=== PATIENT | female | born 1955 | race Caucasian/White ===

== ENCOUNTER 2024-08-29 14:25 | Inpatient (IN) | payer OTHER, MEDICARE ==
--- OUTSIDE RECORDS SUMMARY | 2024-08-29 14:28 | XMS REPORT | Continuity of Care Document ---
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 Phone Sylwia Gibson Attending Clinician Unavailable Payers Payer Name Policy Type Policy Number Effective Date Expirati on Date Source MEDICARE NOVITAS MB [id number] 2020 00:00:00 [facility] MEDICARE NOVITAS MB [id number] 2020 00:00:00 [facility] Problems Condition Name Condition Details Condition Category Status Onset Date Resolution Date Last Treatment Date Treating Clinician Comments Source [id number] BMI 29.0-29.9, adult Problem [facility] Vitamin D deficiency Vitamin D deficiency Problem [facility] Hypertensi on Hypertensi on Problem [facility] [id number] Mixed hyperlipid emia Problem [facility] [id number] Pulmonary emphysema, unspecifie d emphysema type Problem [facility] Chronic pain syndrome Chronic pain syndrome Problem [facility] Nicotine dependence Nicotine dependence Problem [facility] [id number] Encounter for immunizati on Problem [facility] Hyperlipid aemia Hyperlipem ia Problem [facility] [id number] Post-menop ausal Problem [facility] Allergies, Adverse Reactions, Alerts Allergy Name Allergy Type Status Severity Reaction(s) Onset Date Inactive Date Treating Clinician Comments Source 0 Drug allergy Active Whelps [facility] naproxen naproxen Active GI bleed Comm on [facility] Social History Social Habit Start Date Stop Date Quantity Comments Source History of Tobacco Use Current Smoker [facility] Sex Assigned At [facility] Smoking Status Start Date Stop Date Source Current Smoker 2024-07-13 00:00:00 [facility] Medications Ordered Medication Name Filled Medication Name Start Date Stop Date Current Medication? Ordering Clinician Indication Dosage Frequency Signature (SIG) Comments Components Source Rosuvastati n Calcium 40 MG Rosuvastati n Calcium 40 MG 07-17 00:00: 00 No 1{table t} QD Rosuvastat in Calcium 40 MG Ultram 50 MG Ultram 50 MG No Ultram 50 MG tiZANidine HCl 4 MG tiZANidine HCl 4 MG No 1{table t_as_ne eded} BID tiZANidine HCl 4 MG Vitamin D3 2000 UNIT Vitamin D3 2000 UNIT No 1{capsu le} QD Vitamin D3 2000 UNIT Lisinopril- hydroCHLORO thiazide 20-12.5 MG Lisinopril- hydroCHLORO thiazide 20-12.5 MG No QD Lisinopril -hydroCHLO ROthiazide 20-12.5 MG Albuterol Sulfate HFA 108 (90 Base) MCG/ACT Albuterol Sulfate HFA 108 (90 Base) MCG/ACT No QID Albuterol Sulfate HFA 108 (90 Base) MCG/ACT Anoro Ellipta 62.5-25 MCG/ACT Anoro Ellipta 62.5-25 MCG/ACT No 1{puff} QD Anoro Ellipta 62.5-25 MCG/ACT Immunizations Ordered Immunization Name Filled Immunization Name Date Status Comments Source FLUZONE HIGH DOSE OVER 65 FLUZONE HIGH DOSE OVER 65 2022-04-07 16:21:00 Completed [facility] FLUZONE HIGH DOSE OVER 65 FLUZONE HIGH DOSE OVER 65 2022-04-07 16:21:00 Completed [facility] FLUZONE HIGH DOSE OVER 65 FLUZONE HIGH DOSE OVER 65 2022-04-07 16:21:00 Completed [facility] FLUZONE HIGH DOSE OVER 65 FLUZONE HIGH DOSE OVER 65 2022-04-07 16:21:00 Completed [facility] FLUZONE HIGH DOSE OVER 65 FLUZONE HIGH DOSE OVER 65 2021-02-09 10:46:00 Completed [facility] FLUZONE HIGH DOSE OVER 65 FLUZONE HIGH DOSE OVER 65 2021-02-09 10:46:00 Completed [facility] FLUZONE HIGH DOSE OVER 65 FLUZONE HIGH DOSE OVER 65 2021-02-09 10:46:00 Completed [facility] FLUZONE HIGH DOSE OVER 65 FLUZONE HIGH DOSE OVER 65 2021-02-09 10:46:00 Completed [facility] FLUZONE HIGH DOSE OVER 65 FLUZONE HIGH DOSE OVER 65 2021-02-09 10:46:00 Completed [facility] Moderna COVID-19 Vaccine Moderna COVID-19 Vaccine 2021-02-06 11:38:00 Completed [facility] Moderna COVID-19 Vaccine (Low Dose Booster) Moderna COVID-19 Vaccine (Low Dose Booster) 2021-02-06 11:38:00 Completed [facility] Moderna COVID-19 Vaccine (Low Dose Booster) Moderna COVID-19 Vaccine (Low Dose Booster) 2021-02-06 11:38:00 Completed [facility] Moderna COVID-19 Vaccine (Low Dose Booster) Moderna COVID-19 Vaccine (Low Dose Booster) 2021-02-06 11:38:00 Completed [facility] Moderna COVID-19 Vaccine (Low Dose Booster) Moderna COVID-19 Vaccine (Low Dose Booster) 2021-02-06 11:38:00 Completed [facility] Moderna COVID-19 Vaccine Moderna COVID-19 Vaccine 2020-04-23 14:05:00 Completed [facility] Moderna COVID-19 Vaccine Moderna COVID-19 Vaccine 2020-04-23 14:05:00 Completed [facility] Moderna COVID-19 Vaccine Moderna COVID-19 Vaccine 2020-04-23 14:05:00 Completed [facility] Moderna COVID-19 Vaccine Moderna COVID-19 Vaccine 2020-04-23 14:05:00 Completed [facility] Moderna COVID-19 Vaccine Moderna COVID-19 Vaccine 2020-04-23 14:05:00 Completed [facility] Moderna COVID-19 Vaccine (Low Dose Booster) Moderna COVID-19 Vaccine (Low Dose Booster) Unknown Completed [facility] FLUZONE HIGH DOSE OVER 65 FLUZONE HIGH DOSE OVER 65 Unknown Completed [facility] Moderna COVID-19 Vaccine (Low Dose Booster) Moderna COVID-19 Vaccine (Low Dose Booster) Unknown Completed [facility] FLUZONE HIGH DOSE OVER 65 FLUZONE HIGH DOSE OVER 65 Unknown Completed [facility] Moderna COVID-19 Vaccine (Low Dose Booster) Moderna COVID-19 Vaccine (Low Dose Booster) Unknown Completed [facility] FLUZONE HIGH DOSE OVER 65 FLUZONE HIGH DOSE OVER 65 Unknown Completed [facility] Moderna COVID-19 Vaccine (Low Dose Booster) Moderna COVID-19 Vaccine (Low Dose Booster) Unknown Completed [facility] FLUZONE HIGH DOSE OVER 65 FLUZONE HIGH DOSE OVER 65 Unknown Completed [facility] Moderna COVID-19 Vaccine (Low Dose Booster) Moderna COVID-19 Vaccine (Low Dose Booster) Unknown Completed [facility] FLUZONE HIGH DOSE OVER 65 FLUZONE HIGH DOSE OVER 65 Unknown Completed [facility] MODERNA COVID-19 VACCINE (LOW DOSE BOOSTER) MODERNA COVID-19 VACCINE (LOW DOSE BOOSTER) Unknown Completed [facility] FLUZONE HIGH DOSE OVER 65 FLUZONE HIGH DOSE OVER 65 Unknown Completed [facility] Prevnar 20 (PCV20) Prevnar 20 (PCV20) Unknown Completed [facility] MODERNA COVID-19 VACCINE (LOW DOSE BOOSTER) MODERNA COVID-19 VACCINE (LOW DOSE BOOSTER) Unknown Completed [facility] FLUZONE HIGH DOSE OVER 65 FLUZONE HIGH DOSE OVER 65 Unknown Completed [facility] Prevnar 20 (PCV20) Prevnar 20 (PCV20) Unknown Completed [facility] MODERNA COVID-19 VACCINE (LOW DOSE BOOSTER) MODERNA COVID-19 VACCINE (LOW DOSE BOOSTER) Unknown Completed [facility] FLUZONE HIGH DOSE OVER 65 FLUZONE HIGH DOSE OVER 65 Unknown Completed [facility] Prevnar 20 (PCV20) Prevnar 20 (PCV20) Unknown Completed [facility] MODERNA COVID-19 VACCINE (LOW DOSE BOOSTER) MODERNA COVID-19 VACCINE (LOW DOSE BOOSTER) Unknown Completed [facility] FLUZONE HIGH DOSE OVER 65 FLUZONE HIGH DOSE OVER 65 Unknown Completed [facility] Vital Signs Vital Name Observation Time Observation Value Comments S ource height 2024-06-11 13:00:00 62.5 [in_i] Comm on [facility] weight 2024-06-11 13:00:00 149.2 [lb_av] Co mmon [facility] temperature 2024-06-11 13:00:00 97.9 [degF] Com mon [facility] bmi 2024-06-11 13:00:00 26.85 kg/m2 Comm on [facility] oximetry 2024-06-11 13:00:00 96 % Commo n [facility] respiratory rate 2024-06-11 13:00:00 16 /min [facility] blood pressure systolic 2024-06-11 13:00:00 132 mm[Hg] [facility] blood pressure diastolic 2024-06-11 13:00:00 84 mm[Hg] [facility] height 2024-06-11 13:00:00 62.5 [in_i] Comm on [facility] weight 2024-06-11 13:00:00 149.2 [lb_av] Co mmon [facility] temperature 2024-06-11 13:00:00 97.9 [degF] Com mon [facility] bmi 2024-06-11 13:00:00 26.85 kg/m2 Comm on [facility] oximetry 2024-06-11 13:00:00 96 % Commo n [facility] respiratory rate 2024-06-11 13:00:00 16 /min Common [facility] blood pressure systolic 2024-06-11 13:00:00 132 mm[Hg] Common [facility] blood pressure diastolic 2024-06-11 13:00:00 84 mm[Hg] Common [facility] height 2023-12-13 13:00:00 62.5 [in_i] Comm on [facility] weight 2023-12-13 13:00:00 155.2 [lb_av] Co mmon [facility] temperature 2023-12-13 13:00:00 98.2 [degF] Com mon [facility] bmi 2023-12-13 13:00:00 27.93 kg/m2 Comm on [facility] oximetry 2023-12-13 13:00:00 95 % Commo n [facility] respiratory rate 2023-12-13 13:00:00 16 /min Common [facility] blood pressure systolic 2023-12-13 13:00:00 139 mm[Hg] [facility] diastolic 2023-12-13 13:00:00 79 mm[Hg] Common [facility] height 2023-07-12 09:00:00 62.5 [in_i] Comm on [facility] weight 2023-07-12 09:00:00 159.2 [lb_av] Co mmon [facility] temperature 2023-07-12 09:00:00 98.6 [degF] Com mon [facility] bmi 2023-07-12 09:00:00 28.65 kg/m2 Comm on [facility] oximetry 2023-07-12 09:00:00 96 % Commo n [facility] respiratory rate 2023-07-12 09:00:00 16 /min Common [facility] blood pressure systolic 2023-07-12 09:00:00 142 mm[Hg] [facility] blood pressure diastolic 2023-07-12 09:00:00 88 mm[Hg] Common [facility] height 2023-07-12 09:00:00 62.5 [in_i] Comm on [facility] weight 2023-07-12 09:00:00 159.2 [lb_av] Co mmon [facility] temperature 2023-07-12 09:00:00 98.6 [degF] Com [facility] bmi 2023-07-12 09:00:00 28.65 kg/m2 Comm on [facility] oximetry 2023-07-12 09:00:00 96 % Commo n [facility] respiratory rate 2023-07-12 09:00:00 16 /min Common [facility] blood pressure systolic 2023-07-12 09:00:00 142 mm[Hg] [facility] blood pressure diastolic 2023-07-12 09:00:00 88 mm[Hg] Common [facility] height 2023-01-04 13:20:00 62.5 [in_i] Comm on [facility] weight 2023-01-04 13:20:00 162.2 [lb_av] Co mmon [facility] temperature 2023-01-04 13:20:00 97.5 [degF] Com [facility] bmi 2023-01-04 13:20:00 29.19 kg/m2 Comm on [facility] oximetry 2023-01-04 13:20:00 95 % Commo n [facility] respiratory rate 2023-01-04 13:20:00 16 /min [facility] blood pressure systolic 2023-01-04 13:20:00 139 mm[Hg] [facility] blood pressure diastolic 2023-01-04 13:20:00 70 mm[Hg] Common [facility] height 2022-07-27 13:40:00 62.5 [in_i] Comm on [facility] weight 2022-07-27 13:40:00 163.8 [lb_av] Co on [facility] temperature 2022-07-27 13:40:00 98.2 [degF] Com [facility] bmi 2022-07-27 13:40:00 29.48 kg/m2 Comm on [facility] oximetry 2022-07-27 13:40:00 97 % Commo n [facility] respiratory rate 2022-07-27 13:40:00 16 /min [facility] blood pressure systolic 2022-07-27 13:40:00 119 mm[Hg] [facility] blood pressure diastolic 2022-07-27 13:40:00 76 mm[Hg] [facility] height 2022-04-07 11:20:00 62.5 [in_i] Comm on [facility] weight 2022-04-07 11:20:00 165.4 [lb_av] Co [facility] temperature 2022-04-07 11:20:00 98.4 [degF] Com [facility] bmi 2022-04-07 11:20:00 29.77 kg/m2 Comm on [facility] oximetry 2022-04-07 11:20:00 96 % Commo n [facility] respiratory rate 2022-04-07 11:20:00 16 /min Common [facility] blood pressure systolic 2022-04-07 11:20:00 134 mm[Hg] [facility] blood pressure diastolic 2022-04-07 11:20:00 82 mm[Hg] [facility] height 2022-04-07 11:20:00 62.5 [in_i] Comm on [facility] weight 2022-04-07 11:20:00 165.4 [lb_av] Co mmon [facility] temperature 2022-04-07 11:20:00 98.4 [degF] Com [facility] bmi 2022-04-07 11:20:00 29.77 kg/m2 Comm on [facility] oximetry 2022-04-07 11:20:00 96 % Commo n [facility] respiratory rate 2022-04-07 11:20:00 16 /min Common [facility] blood pressure systolic 2022-04-07 11:20:00 134 mm[Hg] [facility] blood pressure diastolic 2022-04-07 11:20:00 82 mm[Hg] [facility] height 2022-04-07 11:00:00 62.5 [in_i] Comm on [facility] weight 2022-04-07 11:00:00 165.4 [lb_av] Co mmon [facility] temperature 2022-04-07 11:00:00 98.4 [degF] Com mon [facility] bmi 2022-04-07 11:00:00 29.77 kg/m2 Comm on [facility] oximetry 2022-04-07 11:00:00 96 % Commo n [facility] respiratory rate 2022-04-07 11:00:00 16 /min Common [facility] blood pressure systolic 2022-04-07 11:00:00 134 mm[Hg] [facility] blood pressure diastolic 2022-04-07 11:00:00 82 mm[Hg] [facility] height 2021-10-19 08:00:00 62.5 [in_i] Comm on [facility] weight 2021-10-19 08:00:00 161.4 [lb_av] Co mmon [facility] temperature 2021-10-19 08:00:00 98.4 [degF] Com mon [facility] bmi 2021-10-19 08:00:00 29.05 kg/m2 Comm on [facility] oximetry 2021-10-19 08:00:00 96 % Commo n [facility] respiratory rate 2021-10-19 08:00:00 16 /min [facility] blood pressure systolic 2021-10-19 08:00:00 139 mm[Hg] [facility] blood pressure diastolic 2021-10-19 08:00:00 70 mm[Hg] Common [facility] height 2021-04-14 10:00:00 65 [in_i] Commo n [facility] weight 2021-04-14 10:00:00 162 [lb_av] Comm on [facility] temperature 2021-04-14 10:00:00 98.1 [degF] Com mon [facility] bmi 2021-04-14 10:00:00 26.96 kg/m2 Comm on [facility] oximetry 2021-04-14 10:00:00 96 % Commo n [facility] respiratory rate 2021-04-14 10:00:00 16 /min [facility] blood pressure systolic 2021-04-14 10:00:00 130 mm[Hg] [facility] blood pressure diastolic 2021-04-14 10:00:00 68 mm[Hg] [facility] height 2020-10-07 08:20:00 65 [in_i] Commo n [facility] weight 2020-10-07 08:20:00 165 [lb_av] Comm on [facility] temperature 2020-10-07 08:20:00 97.3 [degF] Com mon [facility] bmi 2020-10-07 08:20:00 27.45 kg/m2 Comm on [facility] oximetry 2020-10-07 08:20:00 97 % Commo n [facility] respiratory rate 2020-10-07 08:20:00 16 /min [facility] blood pressure systolic 2020-10-07 08:20:00 130 mm[Hg] [facility] blood pressure diastolic 2020-10-07 08:20:00 72 mm[Hg] [facility] Encounters Start Date/Time End Date/Time Encounter Type Admission Type Attending [facility] Facility Care Department Encounter ID Source 2024-06-07 09:43:00 Outpatient ArthurSylwia STLC STLC [id number] [facility] 2023-07-11 09:49:00 Outpatient [place] tosc[place] STLMLC STLMLC [id number] [facility] 2023-06-16 08:39:00 Outpatient ArthurSylwia STLC STLMLC [id number] [facility] 2023-01-04 14:00:00 Outpatient [place] toscano STLMLC STLMLC [id number] [facility] 2022-01-21 09:53:00 Outpatient ArthurSylwia STLMLC STLMLC [id number] [facility] 2021-10-15 08:33:01 Outpatient Arthur Sylwia STLC STLMLC [id number] [facility] 2021-05-06 14:29:30 Outpatient Sylwia Gibson STRODNEY STLMLC [id number] [facility] 2021-05-06 14:07:47 Outpatient Sylwia Gibson STJELENALC STLMLC [id number] [facility] 2021-05-06 13:41:34 Outpatient Sylwia Gibson STLMLC STLMLC [id number] [facility] 2021-05-06 13:19:18 Outpatient Sylwia Gibson STLMLC STLMLC [id number] [facility] 2021-05-06 12:20:10 Outpatient Sylwia Gibson STLMLC STLMLC [id number] [facility] 2021-05-06 11:01:00 Outpatient Sylwia Gibson STLMLC STLMLC [id number] [facility] 2024-06-11 00:00:00 2024-06-11 00:00:00 OFFICE VISIT ESTAB PT LEVEL 4 STLMLC STLMLC [id number] [facility] 2024-01-27 00:00:00 2024-01-27 00:00:00 (TEL) STLMLC STLMLC [id number] [facility] 2023-12-13 00:00:00 2023-12-13 00:00:00 OFFICE VISIT ESTAB PT LEVEL 4 STLMLC STLMLC [id number] [facility] 2023-07-12 00:00:00 2023-07-12 00:00:00 OFFICE VISIT ESTAB PT LEVEL 4 STLMLC STLMLC [id number] [facility] 2023-07-12 00:00:00 2023-07-12 00:00:00 SUB ANNUAL [facility] VISIT STLMLC STLMLC [id number] [facility] 2023-04-20 00:00:00 2023-04-20 00:00:00 (TEL) STLMLC STLMLC [id number] [facility] 2023-01-04 00:00:00 2023-01-04 00:00:00 OFFICE VISIT ESTAB PT LEVEL 4 STLMLC STLMLC [id number] [facility] 2022-10-21 00:00:00 2022-10-21 00:00:00 (TEL) STLMLC STLMLC [id number] [facility] 2022-08-05 00:00:00 2022-08-05 00:00:00 (TEL) STLMLC STLMLC [id number] [facility] 2022-07-27 00:00:00 2022-07-27 00:00:00 OFFICE VISIT ESTAB PT LEVEL 4 STLMLC STLMLC [id number] [facility] 2022-04-26 00:00:00 2022-04-26 00:00:00 (TEL) STLMLC STLMLC [id number] [facility] 2022-04-07 00:00:00 2022-04-07 00:00:00 OFFICE VISIT ESTAB PT LEVEL 4 STLMLC STLMLC [id number] [facility] 2022-04-07 00:00:00 2022-04-07 00:00:00 SUB ANNUAL [facility] VISIT STLMLC STLMLC [id number] [facility] 2021-10-19 00:00:00 2021-10-19 00:00:00 OFFICE VISIT ESTAB PT LEVEL 4 STLMLC STLMLC [id number] [facility] 2021-04-27 00:00:00 2021-04-27 00:00:00 (TEL) STLMLC STLMLC [id number] [facility] 2021-04-14 00:00:00 2021-04-14 00:00:00 OFFICE VISIT ESTAB PT LEVEL 4 STLMLC STLMLC [id number] [facility] 2021-02-06 00:00:00 2021-02-06 00:00:00 (COVID Inj) COVID Injection STLMLC STLMLC [id number] [facility] 2021-02-04 00:00:00 2021-02-04 00:00:00 (TEL) STLMLC STLMLC [id number] [facility] 2020-12-03 00:00:00 2020-12-03 00:00:00 Outpatient STLMLC STLMLC [id number] [facility] 2020-11-25 00:00:00 2020-11-25 00:00:00 Outpatient STLMLC STLMLC [id number] [facility] 2020-10-07 00:00:00 2020-10-07 00:00:00 OFFICE VISIT ESTAB PT LEVEL 4 STLMLC STLMLC [id number] [facility] 2020-09-25 00:00:00 2020-09-25 00:00:00 Outpatient STLMLC STLMLC [id number] [facility] 2020-04-24 00:00:00 2020-04-24 00:00:00 Outpatient STLMLC STLMLC [id number] [facility] 2020-01-07 00:00:00 2020-01-07 00:00:00 Outpatient STLMLC STLMLC [id number] [facility] 2019-10-23 16:40:00 2019-10-23 16:40:00 [facility] [id number] [facility] 2019-04-25 17:46:00 2019-04-25 17:46:00 [facility] [place] [facility] [id number] [facility] 2019-04-25 16:40:00 2019-04-25 16:40:00 [facility] [id number] [facility] 2018-10-16 15:14:00 2018-10-16 15:14:00 [facility]patient [facility] [id number] [facility] 2018-10-11 14:40:00 2018-10-11 14:40:[address] [facility] [id number] [facility] 2018-09-22 11:21:00 2018-09-22 11:21:[address] [facility] [id number] [facility] 2018-03-28 13:00:00 2018-03-28 13:00:[address] [facility] [id number] [facility] 2017-08-23 14:45:00 2017-08-23 14:45:[address] [facility] [id number] [facility]
[2024-08-29] MEDS ORDERED: ASPIRIN 81 MG CHEWABLE TABLET ONE (14:59)
[2024-08-29] MEDS ORDERED: NITROGLYCERIN 0.4 MG/TAB SL ONE (14:59)
[2024-08-29 15:18] LABS: Absolute Basophils 0.1 K/uL (0-0.5); Absolute Eosinophils 0.1 K/uL (0-0.5); Absolute Lymphocytes (CBC) 1.3 K/uL (0.7-4.9); Absolute Monocytes 0.5 K/uL (0.1-1.3); Absolute Neutrophil 4.9 K/uL (1.8-8.0); Basophils % 0.9 % (0-1.3); Eosinophils % 2.1 % (0-4.4); Hemoglobin 14.9 g/dL (12.0-15.0); Lymphocytes % 18.6 % (15.3-44.8); MCHC 35.4 g/dL (32.0-36.0); MCV 84.8 fL (80-100); MPV 8.4 fL (7.6-11.3); Monocytes % 6.7 % (3.3-12.3); Neutrophils % 71.7 % (41.7-73.7); Platelets 240 thou/uL (152-406); RBC Red Blood Cell Count 4.95 M/uL (3.86-4.86); Red Cell Distribution Width 14.4 % (12.1-15.2)
[2024-08-29 15:40] LABS: ALT/SGPT 20 U/L (13-56); AST/SGOT 13 U/L (15-37); Albumin 3.5 g/dL (3.4-5.0); Albumin/Globulin Ratio 1.2 (1.1-1.8); Alkaline Phosphatase 69 U/L (45-117); Anion Gap 5.9 mEq/L (5.0-15.0); BUN Blood Urea Nitrogen 15 mg/dL (7-18); Bicarbonate 28 mEq/L (21-32); Bilirubin Total 0.2 mg/dL (0.2-1.0); Globulin 2.9 g/dL (2.3-3.5); Glomerular Filtration Rate 73 ml/min (=/>90); Glucose Level 201 mg/dL (74-106); Potassium 2.9 mEq/L (3.5-5.1); Protein, Total 6.4 g/dL (6.4-8.2); Sodium Level 132 mEq/L (136-145); Troponin High Sensitivity 22.1 pg/mL (<58.9)
[2024-08-29 15:41] LABS: Bilirubin Direct < 0.2 mg/dL (0-0.2)
--- NOTE | 2024-08-29 15:45 | RAD REPORT ---
EXAM: Chest Single View HISTORY: 69 years Female CHEST PAIN COMPARISON: 07/11/2008 FINDINGS: LUNGS/PLEURA: Diffuse prominence of the pulmonary interstitium. No focal consolidation. No definite e jennifer. CARDIAC/MEDIASTINUM: The cardiac silhouette is within normal limits. UPPER ABDOMEN: No significant abnormality. BONES: No acute abnormality. LINES/TUBES/OTHER: N/A IMPRESSION: Diffuse interstitial prominence could reflect an atypical infectious process. Edema less likely.
--- NOTE | 2024-08-29 17:08 | ER ---
Nurse's Notes [facility] Name: Alyssa Marquis Age: 69 yrs Sex: Female : 1955 Arrival Date: 08/29/2024 Time: 14:25 Bed 8 Private MD: Diagnosis: Chest pain, unspecified Presentation: 08/29 14:38 Chief complaint: Intermittent chest pain that radiates to neck and left arm x 1 week, hb became constant today. Coronavirus screen: At this time, the client does not indicate any symptoms associated with coronavirus-19. Ebola Screen: No symptoms or risks identified at this time. Initial Sepsis Screen: Does the patient meet any 2 criteria? No. Patient's initial sepsis screen is negative. Does the patient have a suspected source of infection? No. Patient's initial sepsis screen is negative. Risk Assessment: Do you want to hurt yourself or someone else? Patient reports no desire to harm self or others. Onset of symptoms was August 22, 2024. 14:38 Method Of Arrival: Ambulatory hb 14:38 Acuity: HERON 2 hb Historical: - Allergies: 14:39 PENICILLINS; hb 14:39 Naproxen; hb - Home Meds: 14:39 Lisinopril Oral [Active]; hb - PMHx: 14:39 Hypertension; High Cholesterol; hb - Immunization history:: Adult Immunizations up to date. - Infectious Disease History:: Denies. - Social history:: Smoking status: Patient reports the use of cigarette tobacco products, 1.5 PPD. - Family history:: not pertinent. Screenin:43 [facility] ED Fall Risk Assessment (Adult) History of falling in the last 3 months, ld1 including since admission No falls in past 3 months (0 pts) Confusion or Disorientation No (0 pts) Intoxicated or Sedated No (0 pts) Impaired Gait No (0 pts) Mobility Assist Device Used No (0 pt) Altered Elimination No (0 pt) Score/Fall Risk Level 0 - 2 = Low Risk Oriented to surroundings, Hourly rounding (assess needs \T\ fall precautionary measures) done. Abuse screen: Denies threats or abuse. Denies injuries from another. Nutritional screening: No deficits noted. Tuberculosis screening: No symptoms or risk factors identified. Assessment: 14:43 General: Appears in no apparent distress. comfortable, Behavior is calm, cooperative, ld1 appropriate for age. Pain: Complains of pain in anterior aspect of left upper chest and left breast Pain radiates to left arm and left submandibular area Pain currently is 8 out of 10 on a pain scale. Quality of pain is described as sharp, shooting, throbbing, Pain began 2-3 days ago. Is intermittent. Neuro: Level of Consciousness is awake, alert, obeys commands, Oriented to person, place, time, situation. Cardiovascular: Capillary refill < 3 seconds Patient's skin is warm and dry. Cardiovascular: Reports chest pain, Rhythm is sinus rhythm. Respiratory: Airway is patent Respiratory effort is even, labored. GI: Abdomen is round non-distended. : No signs and/or symptoms were reported regarding the genitourinary system. EENT: No signs and/or symptoms were reported regarding the EENT system. Derm: No signs and/or symptoms reported regarding the dermatologic system. Musculoskeletal: No signs and/or symptoms reported regarding the musculoskeletal system. 16:18 Reassessment: Patient appears in no apparent distress at this time. No changes from ld1 previously documented assessment. Vital Signs: 14:38 BP 181 / 87; Pulse 93; Resp 18; Temp 98.1(O); Pulse Ox 96% on R/A; Weight 74.84 kg; hb Height 5 ft. 5 in. ; Pain 7/10; 14:43 BP 181 / 87; Pulse 100; Resp 18; Pulse Ox 96% on R/A; Pain 8/10; ld1 14:38 Body Mass Index 27.46 (74.84 kg, 165.1 cm) hb 14:38 Pain Scale: Adult hb 14:43 Pain Scale: Adult ld1 ED Course: 14:27 Patient arrived in ED. mr 14:33 Pranay Wagner MD is Attending Physician. rt 14:39 Triage completed. hb 14:39 EKG done, by ED staff, reviewed by Pranay Wagner MD. hb 14:41 Arm band placed on. hb 14:43 Marlin Louise, JAD is Primary Nurse. ld1 14:43 Patient has correct armband on for positive identification. Placed in gown. Bed in low ld1 position. Call light in reach. Side rails up X2. compliance monitor on. Pulse ox on. NIBP on. Door closed. Noise minimized. Warm blanket given. 14:43 No provider procedures requiring assistance completed. Patient maintains SpO2 ld1 saturation greater than 95% on room air. 15:10 Inserted saline lock: 20 gauge in right antecubital area, using aseptic technique. ld1 Blood collected. Flushed with 10 mL NS. 15:30 XRAY Chest (1 view) In Process Unspecified. EDMS 17:07 Adams Hendrix MD is Hospitalizing Provider. rt 18:33 Patient admitted, IV remains in place. ld1 Administered Medications: 15:02 Drug: Aspirin PO Chewable Tablet 324 mg PO once; 81 mg tablets x 4 Route: PO; ld1 15:09 Follow up: Response: No adverse reaction ld1 15:02 Drug: Nitroglycerin Sublingual 0.4 mg Sublingual once; every five minute if needed x3 ld1 Route: Sublingual; 17:41 Drug: Potassium PO Effervescent Tablet 50 mEq PO once; dissolve in 4 ounces of water or ld1 juice Route: PO; Medication: 14:43 VIS not applicable for this client. ld1 Outcome: 17:07 Decision to Hospitalize by Provider. rt 18:33 Admitted to Med/surg ld1 18:33 Condition: stable 18:34 Patient left the ED. ld1 Signatures: Dispatcher [employer] EDWI Myriam Fallon, Reg Reg mr Tracey Andino, JAD STREET Marlin Louise RN RN ld1 Pranay Wagner MD MD rt
--- NOTE | 2024-08-29 17:08 | EDPHYS ---
Physician Documentation [facility] Name: Alyssa Marquis Age: 69 yrs Sex: Female : 1955 Arrival Date: 08/29/2024 Time: 14:25 Bed 8 Private MD: ED Physician Pranay Wagner HPI: 08/29 16:12 This 69 yrs old Female presents to ER via Ambulatory with complaints of Chest Pain, rt Back Pain. 16:12 Patient presents to the ED with 1 week of intermittent chest pain. Patient states that rt the pain has been constant since about noon, is worse with exertion. States that the pain radiates to the neck, left arm. Had mild associated nausea, denies other acute complaints, symptoms are moderate in severity, no other aggravating or alleviating factors.. Historical: - Allergies: 14:39 PENICILLINS; hb 14:39 Naproxen; hb - Home Meds: 14:39 Lisinopril Oral [Active]; hb - PMHx: 14:39 Hypertension; High Cholesterol; hb - Immunization history:: Adult Immunizations up to date. - Infectious Disease History:: Denies. - Social history:: Smoking status: Patient reports the use of cigarette tobacco products, 1.5 PPD. - Family history:: not pertinent. ROS: 16:12 Constitutional: Negative for fever, chills, and weight loss, Respiratory: Negative for rt shortness of breath, cough, wheezing, and pleuritic chest pain, MS/Extremity: Negative for injury and deformity, Skin: Negative for injury, rash, and discoloration, Neuro: Negative for headache, weakness, numbness, tingling, and seizure, 16:12 Cardiovascular: Positive for chest pain, Negative for edema, 16:12 Abdomen/GI: Positive for nausea, Negative for abdominal pain, Exam: 16:12 Constitutional: This is a well developed, well nourished patient who is awake, alert, rt and in no acute distress. Head/Face: Normocephalic, atraumatic. Chest/axilla: Normal chest wall appearance and motion. Nontender with no deformity. No lesions are appreciated. Cardiovascular: Regular rate and rhythm with a normal S1 and S2. No gallops, murmurs, or rubs. Normal PMI, no JVD. No pulse deficits. Respiratory: Lungs have equal breath sounds bilaterally, clear to auscultation and percussion. No rales, rhonchi or wheezes noted. No increased work of breathing, no retractions or nasal flaring. Abdomen/GI: Soft, non-tender, with normal bowel sounds. No distension or tympany. No guarding or rebound. No evidence of tenderness throughout. Skin: Warm, dry with normal turgor. Normal color with no rashes, no lesions, and no evidence of cellulitis. MS/ Extremity: Pulses equal, no cyanosis. Neurovascular intact. Full, normal range of motion. Neuro: Awake and alert, GCS 15, oriented to person, place, time, and situation. Cranial nerves II-XII grossly intact. Motor strength 5/5 in all extremities. Sensory grossly intact. Cerebellar exam normal. Normal gait. 16:12 ECG was reviewed by the Attending Physician. Vital Signs: 14:38 BP 181 / 87; Pulse 93; Resp 18; Temp 98.1(O); Pulse Ox 96% on R/A; Weight 74.84 kg; hb Height 5 ft. 5 in. ; Pain 7/10; 14:43 BP 181 / 87; Pulse 100; Resp 18; Pulse Ox 96% on R/A; Pain 8/10; ld1 14:38 Body Mass Index 27.46 (74.84 kg, 165.1 cm) hb 14:38 Pain Scale: Adult hb 14:43 Pain Scale: Adult ld1 MDM: 14:40 Medical Screening Exam initiated rt 18:37 Differential diagnosis: ACS, nonspecific chest pain, pneumonia, CHF. HEART Score: rt History: Highly Suspicious (2), ECG: Non specific repolarization disturbance / LBTB / PM (1), Age: > or = 65 years (2), Risk Factors: > or = 3 Risk factors for atherosclerotic disease (2), Troponin: < or = 1 x Normal Limit (0), Total Score = 7. The patient was given aspirin in the Emergency Department. Data reviewed: vital signs, nurses notes, lab test result(s), EKG, radiologic studies. Consideration of Admission/Observation Patient was admitted/placed on observation. Management of patient was discussed with the following: Hospitalist: Agrees to admit. I considered the following discharge prescriptions or medication management in the emergency department Medications were administered in the Emergency Department. See MAR. Independent interpretation of the following test(s) in the Emergency Department X-Ray: My interpretation is No infiltrate seen on interpretation of x-ray images. Test considered but Not performed: CT: Low suspicion for PE, CT angiogram not indicated. Care significantly affected by the following chronic conditions: Hypertension. Counseling: I had a detailed discussion with the patient and/or guardian regarding the historical points, exam findings, and any diagnostic results supporting the discharge/admit diagnosis, lab results, radiology results, the need for further work-up and treatment in the hospital. Response to treatment: the patient's symptoms have markedly improved after treatment. 08/29 14:55 Order name: Basic Metabolic Panel; Complete Time: 15:49 rt 08/29 14:55 Order name: CBC with Diff; Complete Time: 15:49 rt 08/29 14:55 Order name: LFT's; Complete Time: 15:49 rt 08/29 14:55 Order name: Troponin HS; Complete Time: 15:49 rt 08/29 17:29 Order name: Basic Metabolic Panel EDMS 08/29 17:29 Order name: Basic Metabolic Panel EDMS 08/29 17:29 Order name: Basic Metabolic Panel EDMS 08/29 17:29 Order name: Basic Metabolic Panel EDMS 08/29 17:29 Order name: CBC with Automated Diff EDMS 08/29 17:29 Order name: CBC with Automated Diff EDMS 08/29 17:29 Order name: CBC with Automated Diff EDMS 08/29 17:29 Order name: CBC with Automated Diff EDMS 08/29 17:29 Order name: Lipid Profile EDMS 08/29 17:29 Order name: Lipid Profile EDMS 08/29 17:29 Order name: Magnesium EDMS 08/29 17:29 Order name: Magnesium EDMS 08/29 17:29 Order name: Magnesium EDMS 08/29 17:29 Order name: Magnesium EDMS 08/29 17:29 Order name: Troponin High Sensitivity EDMS 08/29 17:29 Order name: Troponin High Sensitivity EDMS 08/29 17:29 Order name: Troponin High Sensitivity EDMS 08/29 14:55 Order name: XRAY Chest (1 view); Complete Time: 15:49 rt 08/29 17:26 Order name: Echo with Doppler EDMS 08/29 14:55 Order name: EKG; Complete Time: 14:55 rt 08/29 14:55 Order name: Cardiac monitoring; Complete Time: 14:56 rt 08/29 14:55 Order name: EKG - Nurse/Tech; Complete Time: 14:56 rt 08/29 14:55 Order name: IV Saline Lock; Complete Time: 15:10 rt 08/29 14:55 Order name: Labs collected and sent; Complete Time: 15:10 rt 08/29 14:55 Order name: O2 Per Protocol; Complete Time: 14:56 rt 08/29 14:55 Order name: O2 Sat Monitoring; Complete Time: 14:56 rt EC:12 Rate is 93 beats/min. Rhythm is regular, Normal Sinus Rhythm with No ectopy, rt Nonspecific idioventricular block. Extreme Right axis deviation noted. SD interval is normal. QRS interval is normal. QT interval is normal. No Q waves. T waves are Normal. No ST changes noted. Interpreted by me. Administered Medications: 15:02 Drug: Aspirin PO Chewable Tablet 324 mg PO once; 81 mg tablets x 4 Route: PO; ld1 15:09 Follow up: Response: No adverse reaction ld1 15:02 Drug: Nitroglycerin Sublingual 0.4 mg Sublingual once; every five minute if needed x3 ld1 Route: Sublingual; 17:41 Drug: Potassium PO Effervescent Tablet 50 mEq PO once; dissolve in 4 ounces of water or ld1 juice Route: PO; Disposition Summary: 08/29/24 17:07 Hospitalization Ordered Notes: Hospitalization Status: Observation rt Provider: Adams Hendrix rt Location: Telemetry/MedSurg (observation) rt Condition: Fair rt Problem: new rt Symptoms: have improved rt Bed/Room Type: Standard rt Room Assignment: 411(08/29/24 17:28) bd Diagnosis - Chest pain, unspecified rt Forms: - Medication Reconciliation Form rt - SBAR form rt - Leadership Thank You Letter rt Signatures: Dispatcher [employer] Nehal Bashir Heather, RN RN Marlin Louise RN RN ld1 Pranay Wagner MD MD rt Corrections: (The following items were deleted from the chart) 17: 17:07 rt bd
[2024-08-29] MEDS ORDERED: MORPHINE 2 MG/ML SYR IV PRN (17:23)
[2024-08-29] MEDS ORDERED: POTASSIUM 25 MEQ EFFERV TAB ONE (17:23)
[2024-08-29] MEDS ORDERED: ONDANSETRON 4 MG/2 ML VIAL IV PRN (17:25)
--- NOTE | 2024-08-29 17:35 | P.HP ---
Certification for Inpatient Patient admitted to: Observation With expected LOS: <2 Midnights Patient will require the following post-hospital care: None Practitioner: I am a practitioner with admitting privileges, knowledge of patient current condition, hospital course, and medical plan of care. Services: Services provided to patient in accordance with Admission requirements found in Title 42 Section 412.3 of the Code of Federal Regulations Patient History Date of Service: 08/29/24 Reason for admission: Chest pain History of Present Illness: 68-year-old female with history of hypertension, hyperlipidemia, tobacco use disorder presents to the emergency department chief complaint of chest pain. She reports intermittent chest pain over the course of the last 1 week that became sustained and worse today. She reports pain that radiates around her left thorax to her back and into her neck and arm. Symptoms began about 1 week ago and she has not had them previously. She reports that she had a stress test 5 years ago but she cannot be sure 1. Has never had a heart catheterization. Initial high sensitive troponin normal at 22.1 glucose 201 chest x-ray is negative for acute findings. ED provider wishes to admit patient under observation for ACS rule out. - Past Medical/Surgical History -: hypertension -: Hyperlipidemia Psychosocial/ Personal History: Lives at home with family - Family History Brother -: Heart disease - Social History Smoking Status: Current every day smoker Counseled patient to stop smoking for: less than 10 minutes Smoking therapy provided: Yes Alcohol use: No CD- Drugs: No Caffeine use: Yes Place of Residence: Home Review of Systems 10-point ROS is otherwise unremarkable Cardiovascular: Chest Pain Physical Examination - Physical Exam General: Alert, In no apparent distress, Oriented x3 HEENT: Atraumatic, PERRLA, EOMI Neck: Supple, 2+ carotid pulse no bruit, No LAD, Without JVD or thyroid abnormality Respiratory: Clear to auscultation bilaterally, Normal air movement Cardiovascular: Regular rate/rhythm, Normal S1 S2, Systolic murmur Gastrointestinal: Normal bowel sounds, No tenderness Musculoskeletal: No tenderness Integumentary: No rashes Neurological: Normal gait, Normal speech, Normal strength at 5/5 x4 extr, Normal affect - Studies Laboratory Data (last 24 hrs) 08/29/24 08/29/24 15:07 15:07 WBC 6.80 Hgb 14.9 Hct 42.0 Plt Count 240 Sodium 132 L Potassium 2.9 L BUN 15 Creatinine 0.86 Glucose 201 H Total Bilirubin 0.2 AST 13 L ALT 20 Alkaline Phosphatase 69 Assessment and Plan - Plan Assessment: Chest pain rule out ACS Hypertension Hyperlipidemia Hypokalemia Hyperglycemia Plan: Chest pain rule out ACS Cardiology consultation, echocardiogram ordered Patient with murmur, she was aware of it for the last 2 months or so Troponins and monitor on telemetry continue aspirin, statin, started on beta-viktor Hypertension Hyperlipidemia Continue home medications Hypokalemia Replaced in ER, protocol in place Hyperglycemia No known history of diabetes, will obtain A1c in the morning DVT PPX: Lovenox Code status: Full Discharge Plan: Home Plan to discharge in: 24 Hours - Advance Directives Does patient have a Living Will: No Does patient have a Durable POA for Healthcare: No - Code Status/Comfort Care Code Status Assessed: Yes (Full code) Critical Care: No Time Spent Managing Pts Care (In Minutes): 67
[2024-08-29 19:42] VITALS: BMI 27.4
[2024-08-29] MEDS: METOPROLOL TAR 25 MG TAB PO SCH (21:15)
[2024-08-29] MEDS: NICOTINE 21 MG/PAT TD PRN (21:16)
[2024-08-29] MEDS: ATORVASTATIN 40 MG TAB PO SCH (21:16)
[2024-08-30 04:31] LABS: Absolute Basophils 0.1 K/uL (0-0.5); Absolute Eosinophils 0.1 K/uL (0-0.5); Absolute Lymphocytes (CBC) 1.7 K/uL (0.7-4.9); Absolute Monocytes 0.8 K/uL (0.1-1.3); Absolute Neutrophil 7.2 K/uL (1.8-8.0); Basophils % 0.9 % (0-1.3); Eosinophils % 1.3 % (0-4.4); Hematocrit 46.7 % (36.0-45.0); Hemoglobin 16.2 g/dL (12.0-15.0); Lymphocytes % 17.5 % (15.3-44.8); MCH 29.7 pg (27.0-35.0); MCHC 34.7 g/dL (32.0-36.0); MCV 85.7 fL (80-100); MPV 8.4 fL (7.6-11.3); Monocytes % 7.9 % (3.3-12.3); Neutrophils % 72.4 % (41.7-73.7); Nucleated Red Blood Cells % 0.1 % (0-0); Platelets 276 thou/uL (152-406); RBC Red Blood Cell Count 5.45 M/uL (3.86-4.86); Red Cell Distribution Width 14.2 % (12.1-15.2)
[2024-08-30 04:49] LABS: Anion Gap 8.8 mEq/L (5.0-15.0); Magnesium 2.1 mg/dL (1.6-2.4); Potassium 4.8 mEq/L (3.5-5.1)
[2024-08-30 04:54] LABS: Troponin High Sensitivity 398.3 pg/mL (<58.9)
[2024-08-30] MEDS ORDERED: TRAMADOL HCL 50 MG TAB PO PRN (05:58)
[2024-08-30] MEDS ORDERED: HEPARIN/D5W 25,000 UNIT/500 ML BAG IV SCH (06:00)
[2024-08-30 06:19] LABS: PT Prothrombin Time 11.5 SECONDS (10-13.0); PTT, Activated Partial Thromb 30.8 SECONDS (27.2-37.4); Protime INR 1.01
[2024-08-30] MEDS: NA CHLORIDE 0.9% 1,000 ML IV SCH (06:23)
[2024-08-30] MEDS: HEPARIN/D5W 25,000 UNIT/500 ML BAG IV SCH (06:53)
--- NOTE | 2024-08-30 08:58 | P.PN ---
Date of Service: 08/30/24 Subjective: No further chest pain overnight Troponin elevated on recheck ROS: 10 point ROS as noted above, otherwise negative Physical exam GEN: Alert, oriented, NAD HEENT: Normal conjunctiva, sclera anicteric CV: Regular rate and rhythm, no edema Pulm: Nonlabored respirations on room air ABD: Soft, nontender, nondistended MSK: No joint tenderness Integumentary: No rashes Neuro: Normal speech, normal affect Vitals reviewed Assessment: NSTEMI Chest pain rule out ACS Hypertension Hyperlipidemia Hypokalemia Hyperglycemia Plan: NSTEMI Chest pain rule out ACS Cardiology consultation, echocardiogram ordered Patient with murmur, she was aware of it for the last 2 months or so Troponin elevated on recheck overnight Started on heparin drip continue aspirin, statin, started on beta-viktor Maintain n.p.o. status for likely coronary angiogram Hypertension Hyperlipidemia Continue home medications Hypokalemia Replaced in ER, protocol in place Hyperglycemia No known history of diabetes, will obtain A1c in the morning DVT PPX: Heparin drip Code status: Full Discharge Plan: Home Plan to discharge in: 24 to 48 hours Time Spent Managing Pts Care (In Minutes): 35
[2024-08-30] MEDS ORDERED: ENOXAPARIN 40 MG/0.4 ML SQ SCH ×2 (09:00)
[2024-08-30] MEDS: ASPIRIN EC 81 MG TAB PO SCH (09:59)
[2024-08-30] MEDS: TIZANIDINE 4 MG TABLET PO SCH (09:59)
--- NOTE | 2024-08-30 10:00 | P.CNS ---
Date of Consult: 08/30/24 Chief Complaint: Chest pain History of Present Illness: Patient with PMH of HTN, HLD, Tobacco use, presented with chest pain, pressure sensation, no radiation started yesterday, but also report angina on exertion, denies any other cardiac symptoms. Allergies naproxen Allergy (Severe, Verified 08/29/24 19:41) Nausea/Vomiting Penicillins Allergy (Severe, Verified 08/29/24 19:41) Hives/Rash Home medications list reviewed: Yes Home Medications: Lisinopril/Hydrochlorothiazide [Lisinopril-Hctz 20-12.5 mg Tab] 20 mg PO BEDTIME 08/29/24 Rosuvastatin Calcium [Crestor] 40 mg PO BEDTIME 08/29/24 Tizanidine HCl [Zanaflex] 2 mg PO BID 08/29/24 Tramadol HCl [Ultram] 50 mg PO TIDP PRN 08/29/24 - Past Medical/Surgical History Diabetic: No -: hypertension -: Hyperlipidemia Psychosocial/ Personal History: Lives at home with family - Family History Brother Medical History: Heart disease - Social History Alcohol use: Yes CD- Drugs: Yes Caffeine use: Yes Place of Residence: Home Review of Systems 10-point ROS is otherwise unremarkable Physical Examination Temp Pulse Resp BP Pulse Ox 98.6 F 65 14 149/81 H 95 08/30/24 08:00 08/30/24 08:00 08/30/24 08:00 08/30/24 08:00 08/30/24 08:00 General: Alert, In no apparent distress HEENT: Atraumatic, PERRLA, Mucous membr. moist/pink, EOMI, Sclerae nonicteric Neck: Supple, 2+ carotid pulse no bruit, No LAD, Without JVD or thyroid abnormality Respiratory: Clear to auscultation bilaterally, Normal air movement Cardiovascular: Regular rate/rhythm, Normal S1 S2 Gastrointestinal: Normal bowel sounds, No tenderness Musculoskeletal: No tenderness Integumentary: No rashes Neurological: Normal gait, Normal speech, Normal tone, Normal affect Lymphatics: No axilla or inguinal lymphadenopathy Laboratory Data (last 24 hrs) 08/30/24 08/30/24 08/30/24 06:03 04:10 04:10 WBC 10.00 Hgb 16.2 H D Hct 46.7 H Plt Count 276 PT 11.5 INR 1.01 APTT 30.8 Sodium 138 D Potassium 4.8 D BUN 14 Creatinine 0.73 Glucose 94 Magnesium 2.1 Total Bilirubin AST ALT Alkaline Phosphatase Triglycerides 99 Cholesterol 149 HDL Cholesterol 67 H Cholesterol/HDL Ratio 2.22 08/29/24 08/29/24 15:07 15:07 WBC 6.80 Hgb 14.9 Hct 42.0 Plt Count 240 PT INR APTT Sodium 132 L Potassium 2.9 L BUN 15 Creatinine 0.86 Glucose 201 H Magnesium Total Bilirubin 0.2 AST 13 L ALT 20 Alkaline Phosphatase 69 Triglycerides Cholesterol HDL Cholesterol Cholesterol/HDL Ratio - Problems (1) NSTEMI (non-ST elevated myocardial infarction) Current Visit: Yes Status: Acute Plan: NPO for coronary angiogram ASA 81 mg daily Lipitor 40 mg daily Heparin drip ACS protocol get echo (2) HTN (hypertension) Current Visit: Yes Status: Acute Plan: continue lopressor 25 mg po bid start lisinopril 20 mg daily continue to monitor (3) HLD (hyperlipidemia) Current Visit: Yes Status: Acute Plan: Lipitor 40 mg daily
[2024-08-30] MEDS ORDERED: NA CHLORIDE 0.9% 500 ML ONE (12:25)
[2024-08-30] MEDS ORDERED: FENTANYL CITR 100 MCG/2 ML ONE (13:08)
[2024-08-30] MEDS ORDERED: MIDAZOLAM HCL 2 MG/2 ML INJ ONE (13:08)
[2024-08-30] MEDS ORDERED: ATROPINE SULF 1 MG/10 ML SYR IV ONE (13:08)
[2024-08-30] MEDS ORDERED: HEPARIN 10,000 UNIT/10 ML VIAL IV ONE (13:08)
[2024-08-30] MEDS ORDERED: HEPA 1000U/500MLS 2,000 UNIT/1,000 ML BAG IV ONE (13:08)
[2024-08-30] MEDS ORDERED: LIDOCAINE 1% 20 ML MDV ONE (13:08)
[2024-08-30] MEDS ORDERED: HEPARIN 5000 UNIT/ML 1 ML VIAL ONE (13:08)
[2024-08-30] MEDS ORDERED: CLOPIDOGREL 75 MG TABLET ONE (13:08)
[2024-08-30] MEDS ORDERED: TICAGRELOR 90 MG TABLET PO ONE (13:09)
[2024-08-30] MEDS ORDERED: ASPIRIN 325 MG TAB ONE (13:09)
[2024-08-30] MEDS ORDERED: FLUMAZENIL 0.1 MG/ML (5 mL VIAL) IV ONE (13:28)
[2024-08-30] MEDS ORDERED: NALOXONE 0.4 MG/ML VIAL ONE (13:28)
--- NOTE | 2024-08-30 18:52 | OP ---
Date of Procedure: 08/30/2024 Surgeon: Leobardo Monaco Procedures Performed: 1. Selective coronary angiogram. 2. PCI of the LAD with Synergy 2.5 x 32 mm drug-eluting stent. Indication For Procedure: [id number] MA. Complications: None. Estimated Blood Loss: Less than 50 cc. Access: Right radial, closed by TR band. Sedation Time: 30 minutes with 2 of Versed and 50 of fentanyl. Description Of Procedure: After risks, benefits, and alternatives were explained to the patient, the patient agreed to proceed with procedure and signed informed consent. The patient was brought back to the asset availability leader, prepped and draped in usual sterile fashion. Time-out was performed. Sedation was administered. Next, right radial access was obtained using ultrasound-guided micropuncture technique . Fentress 4 catheter was advanced over J-wire to the aortic root. Selective angiogram was done. That left catheter was later exchanged with an XB LAD 3.0 mm guide. Heparin was administered. ACT was t herapeutic. Runthrough wire was passed across the lesion. We pre-dilated the lesion with NC 2.0 mm balloon followed by an NC 2.5 mm balloon. Next, Synergy 2.5 x 32 mm drug-eluting stent was placed ac ross the lesion that is postdilated with an NC 3.0 mm balloon. Final angiogram shows MARLIN-3 flow. C atheter was removed over a J-wire. Sheath was removed. TR band was applied. Hemostasis achieved. The patient was moved back to recovery in stable condition. Findings: 1. Left, main normal. 2. LAD, proximal 99% disease followed by mid 90% disease, status post PCI as above. Mid to distal mi ld luminal irregularities. 3. Left circ; mild luminal irregularities. 4. RCA, tortuous, diffuse atherosclerosis with diffuse 30% to 40% disease in the proximal to mid RCA and distal mild luminal regularities. Assessment: Significant proximal to mid LAD disease, status post PCI with Synergy 2.5 x 32 mm drug-e luting stent. Plan: 1. Aspirin 81 mg daily for life. 2. Brilinta 180 x1 was given in the asset availability leader, continue Brilinta 90 mg p.o. b.i.d. for 12 months. 3. Continue aggressive medical treatment for CAD. TRAMAINE/SHILO Voice ID: [id number] Report ID: [id number]
[2024-08-30] MEDS: METOPROLOL XL 25 MG TAB PO ONE (20:37)
[2024-08-30] MEDS: TICAGRELOR 90 MG TABLET PO SCH (20:39)
[2024-08-30] MEDS: METOPROLOL TAR 25 MG TAB ONE (20:41)
[2024-08-30] MEDS ORDERED: ATORVASTATIN 40 MG TAB PO SCH (21:00)
[2024-08-30 21:15] VITALS: O2SAT 98
[2024-08-31 04:38] LABS: Absolute Basophils 0.1 K/uL (0-0.5); Absolute Eosinophils 0.1 K/uL (0-0.5); Absolute Lymphocytes (CBC) 1.7 K/uL (0.7-4.9); Absolute Monocytes 0.8 K/uL (0.1-1.3); Absolute Neutrophil 7.8 K/uL (1.8-8.0); Basophils % 0.5 % (0-1.3); Hematocrit 43.6 % (36.0-45.0); Hemoglobin 15.3 g/dL (12.0-15.0); Lymphocytes % 16.5 % (15.3-44.8); MCH 29.9 pg (27.0-35.0); MCHC 35.1 g/dL (32.0-36.0); MCV 85.4 fL (80-100); MPV 8.6 fL (7.6-11.3); Monocytes % 8.1 % (3.3-12.3); Neutrophils % 73.9 % (41.7-73.7); Platelets 264 thou/uL (152-406); RBC Red Blood Cell Count 5.11 M/uL (3.86-4.86); Red Cell Distribution Width 14.1 % (12.1-15.2)
[2024-08-31 04:47] LABS: Anion Gap 8.3 mEq/L (5.0-15.0); Potassium 3.3 mEq/L (3.5-5.1)
--- NOTE | 2024-08-31 06:46 | ECHO ---
HEIGHT: 5 ft 5 in WEIGHT: 164 lb 15.903 oz DATE OF STUDY: 08/30/[address]: Cortez Bustillo NP 2-DIMENSIONAL: YES M.MODE: YES DOPPLER: YES COLOR FLOW: YES TDS: PORTABLE: YES DEFINITY: BUBBLE STUDY: DIAGNOSIS: CHEST PAIN, MURMUR CARDIAC HISTORY: CATHERIZATION: NO SURGERY: NO PROSTHETIC VALVE: NO PACEMAKER: NO MEASUREMENTS (cm) DIASTOLIC (NORMALS) SYSTOLIC (NORMALS) IVSd 0.9 (0.6-1.2) LA Diam 2.9 (1.9-4.0) LVEF 40-45% LVIDd 4.0 (3.5-5.7) LVIDs 2.5 (2.0-3.5) %FS 37% LVPWd 1.1 (0.6-1.2) Ao Diam 2.2 (2.0-3.7) 2 DIMENSIONAL ASSESSMENT: RIGHT ATRIUM: NORMAL LEFT ATRIUM: NORMAL RIGHT VENTRICLE: NORMAL LEFT VENTRICLE: NORMAL TRICUSPID VALVE: TRACE TRICUSPID REGURGITATION MITRAL VALVE: NORMAL PULMONIC VALVE: NORMAL AORTIC VALVE: TRACE AORTIC REGURGITATION PERICARDIAL EFFUSION: NONE AORTIC ROOT: NORMAL LEFT VENTRICULAR WALL MOTION: APICAL, DISTAL ANTERIOR WALL HYPOKINESIS DOPPLER/COLOR FLOW: GRADE I DIASTOLIC DYSFUNCTION COMMENTS: 1. LOW NORMAL LEFT VENTRICULAR SYSTOLIC FUNCTION, EJECTION FRACTION 40-45%, WALL MOTION ABNORMALITIES ABOVE. 2. GRADE I DIASTOLIC DYSFUNCTION TECHNOLOGIST: CARROL WRIGHT
[2024-08-31 08:14] VITALS: BP 155/81; TEMP 98.1
[2024-08-31] MEDS: lisinopriL 20 MG TAB PO SCH (08:41)
[2024-08-31] MEDS: POTASSIUM CL SA 10 MEQ TAB PO ONE (08:42)
[2024-08-31] MEDS: CLOPIDOGREL 75 MG TABLET PO ONE (09:31)
--- NOTE | 2024-08-31 09:48 | P.DS ---
Admission Date: 08/30/24 Discharge Date: 08/31/24 Disposition: ROUTINE DISCHARGE Discharge Condition: GOOD Reason for Admission: Chest pain Brief History of Present Illness: 68-year-old female with history of hypertension, hyperlipidemia, tobacco use disorder presents to the emergency department chief complaint of chest pain. She reports intermittent chest pain over the course of the last 1 week that became sustained and worse today. She reports pain that radiates around her left thorax to her back and into her neck and arm. Symptoms began about 1 week ago and she has not had them previously. She reports that she had a stress test 5 years ago but she cannot be sure 1. Has never had a heart catheterization. Initial high sensitive troponin normal at 22.1 glucose 201 chest x-ray is negative for acute findings. ED provider wishes to admit patient under observation for ACS rule out. Hospital Course: Assessment: NSTEMI Chest pain rule out ACS Hypertension Hyperlipidemia Hypokalemia Hyperglycemia Patient was admitted to the hospital for chest pain, exertional chest pain. Her initial high suspicion was normal but it became elevated overnight. She u nderwent coronary angiogram on 08/30 which revealed proximal 99% LAD disease followed by mid 90% disease status post PCI with Synergy 2.5 x 32 mm drug- eluting stent. Patient has done well after her heart cath, she is stable for discharge and outpatient follow-up with her primary care doctor and cardiology. Medication should be continued including her lisinopril/hydrochlorothiazide, Crestor. New medications as follows Aspirin 81 mg daily for life Plavix 75 mg daily for at least 12 months, to be discussed further with cardiology at that time Metoprolol tartrate 25 mg twice daily You really need to quit smoking as well as it is also bad for your heart and arteries Vital Signs/Physical Exam: Temp Pulse Resp BP Pulse Ox 98.1 F 69 16 155/81 H 96 08/31/24 08:00 08/31/24 08:41 08/31/24 08:00 08/31/24 08:41 08/31/24 08:00 General: Alert, In no apparent distress, Oriented x3 HEENT: Atraumatic, PERRLA Neck: Supple, JVD not distended Respiratory: Clear to auscultation bilaterally, Normal air movement Cardiovascular: Regular rate/rhythm, Normal S1 S2 Gastrointestinal: Normal bowel sounds, No tenderness Musculoskeletal: No tenderness Integumentary: No rashes Neurological: Normal speech Laboratory Data at Discharge: WBC 10.50 thou/uL (4.3-10.9) 08/31/24 03:59 Hgb 15.3 g/dL (12.0-15.0) H 08/31/24 03:59 Hct 43.6 % (36.0-45.0) 08/31/24 03:59 Plt Count 264 thou/uL (152-406) 08/31/24 03:59 PT 11.5 SECONDS (10-13.0) 08/30/24 06:03 INR 1.01 08/30/24 06:03 APTT 30.1 SECONDS (27.2-37.4) 08/31/24 03:59 Sodium 137 mEq/L (136-145) 08/31/24 03:59 Potassium 3.3 mEq/L (3.5-5.1) L D 08/31/24 03:59 BUN 15 mg/dL (7-18) 08/31/24 03:59 Creatinine 0.53 mg/dL (0.55-1.02) L 08/31/24 03:59 Glucose 79 mg/dL (74-106) 08/31/24 03:59 Magnesium 2.0 mg/dL (1.6-2.4) 08/31/24 03:59 Total Bilirubin 0.2 mg/dL (0.2-1.0) 08/29/24 15:07 AST 13 U/L (15-37) L 08/29/24 15:07 ALT 20 U/L (13-56) 08/29/24 15:07 Alkaline Phosphatase 69 U/L (45-117) 08/29/24 15:07 Triglycerides 99 mg/dL (<150) 08/30/24 04:10 Cholesterol 149 mg/dL (<200) 08/30/24 04:10 HDL Cholesterol 67 mg/dL (40-60) H 08/30/24 04:10 Cholesterol/HDL Ratio 2.22 08/30/24 04:10 Home Medications: Lisinopril/Hydrochlorothiazide [Lisinopril-Hctz 20-12.5 mg Tab] 20 mg PO BEDTIME 08/29/24 Rosuvastatin Calcium [Crestor] 40 mg PO BEDTIME 08/29/24 Tizanidine HCl [Zanaflex] 2 mg PO BID 08/29/24 Tramadol HCl [Ultram] 50 mg PO TIDP PRN 08/29/24 Aspirin [Aspirin EC 81 MG] 81 mg PO DAILY #60 tab 08/31/24 Clopidogrel Bisulfate [Plavix] 75 mg PO DAILY #60 tab 08/31/24 Metoprolol Tartrate [Lopressor*] 25 mg PO BID 6AM 6PM #60 tab 08/31/24 New Medications: Aspirin [Aspirin EC 81 MG] 81 mg PO DAILY #60 tab Metoprolol Tartrate [Lopressor*] 25 mg PO BID 6AM 6PM #60 tab Clopidogrel Bisulfate [Plavix] 75 mg PO DAILY #60 tab Physician Discharge Instructions: Patient was admitted to the hospital for chest pain, exertional chest pain. Her initial high suspicion was normal but it became elevated overnight. She underwent coronary angiogram on 08/30 which revealed proximal 99% LAD disease followed by mid 90% disease status post PCI with Synergy 2.5 x 32 mm drug- eluting stent. Patient has done well after her heart cath, she is stable for discharge and outpatient follow-up with her primary care doctor and cardiology. Medication should be continued including her lisinopril/hydrochlorothiazide, Crestor. New medications as follows Aspirin 81 mg daily for life Plavix 75 mg daily for at least 12 months, to be discussed further with cardiology at that time Metoprolol tartrate 25 mg twice daily You really need to quit smoking as well as it is also bad for your heart and arteries Diet: AHA Activity: Ad chino Followup: Sylwia Gibson NP [Primary Care Provider] - 1-2 Weeks Leobardo Monaco MD [ACTIVE - CAN ADMIT] - 1-2 Weeks Time spent managing pt's care (in minutes): 46
--- NOTE | 2024-09-04 12:42 | EKG ---
Test Date: 2024-08-29 Test Time: 14:40:21 Jointer Machine: Tanvir MCMAHON MEASUREMENT RESULTS: Intervals: Rate: 93 UT: 178 QRSD: 136 QT: 394 QTc: 489 Questa: P: 78 UT: 178 QRS: 257 T: 68 INTERPRETIVE STATEMENTS: Normal sinus rhythm Right superior axis deviation Nonspecific intraventricular block Inferior infarct, age undetermined Cannot rule out Anteroseptal infarct, age undetermined Abnormal ECG No previous ECG available for comparison Electronically Signed On 09-04-24 12:29:59 CDT by Leobardo Monaco
== END 2024-08-31 11:05 | disposition home or self-care (01) | DRG 322 ==
LOC: ER 14:25 → 4TH 17:23 → OBSVTOIN 08-30 08:56
PROVIDERS: ADMIT Hospitalist; ATTEND Hospitalist
PROC: 027034Z Dilation of Coronary Artery, One Artery with Drug-eluting Intraluminal Device, Percutaneous Approach (ICD-10-PCS; principal; 2024-08-30)
PROC: 4A023N7 Measurement of Cardiac Sampling and Pressure, Left Heart, Percutaneous Approach (ICD-10-PCS; 2024-08-30)
PROC: B2111ZZ Fluoroscopy of Multiple Coronary Arteries using Low Osmolar Contrast (ICD-10-PCS; 2024-08-30)
DX: I21.4 Non-ST elevation (NSTEMI) myocardial infarction (principal); E87.6 Hypokalemia; I10 Essential (primary) hypertension; E78.00 Pure hypercholesterolemia, unspecified; I25.10 Atherosclerotic heart disease of native coronary artery without angina pectoris; F17.210 Nicotine dependence, cigarettes, uncomplicated; R73.9 Hyperglycemia, unspecified; Z88.0 Allergy status to penicillin; Z88.8 Allergy status to other drugs, medicaments and biological substances; Z79.899 Other long term (current) drug therapy
CPT/HCPCS: 36415; 71045; 76937; 80048; 80061; 80076; 83735; 84484; 85025; 85347; 85610; 85730; 93005; 93306; 93454; 99152; 99285; C1725; C1877; C1893; C9600; G0378; J0461; J1644; J2003; J2250; J2310; J3010; J7030; J7040; Q9967